=== PATIENT | female | born 1955 | race Caucasian/White ===

== ENCOUNTER 2018-02-06 11:57 | Emergency (ER) | payer OTHER ==
[~2018-02-06 11:57] MED LIST: Aspirin PO; CYCL10TA7 PO; ESTR1TAB17 PO; FIBER SUPPLEMENT PO; HYDR-2132 PO; OMEP20TA25 PO; PREG150C PO; levothyroxine PO
[2018-02-06] MEDS ORDERED: PROMETHAZINE HCL 25 MG/ML 1ML AMPULE IM ONE (12:28)
[2018-02-06] MEDS ORDERED: MORPHINE SULFATE 4 MG/1ML SYG ONE (12:28)
== END 2018-02-06 13:37 | disposition home or self-care (01) ==
LOC: EDH 11:57
DX: S40.011A Contusion of right shoulder, initial encounter (principal); M19.90 Unspecified osteoarthritis, unspecified site; E07.9 Disorder of thyroid, unspecified; K21.9 Gastro-esophageal reflux disease without esophagitis; Z87.891 Personal history of nicotine dependence; W18.39XA Other fall on same level, initial encounter; Y93.89 Activity, other specified; Y92.89 Other specified places as the place of occurrence of the external cause; Y99.8 Other external cause status
CPT/HCPCS: 73030; 73060; 96372 ×2; 99284; J2270; J2550

== ENCOUNTER → 2019-05-17 | Outpatient (CLI) | payer MEDICARE ==
[~2019-05-17] MED LIST changes: +ASPI-1012 PO; +ASPI-555 PO; +BACL20TA PO; +ESTR0.5T PO; +FISH12002 PO; +GABA-531 PO; +HYDR-4457 PO; +LEVO75 PO; +METH1ADH6 TD; +METH1ADH6 TP; +NAPR-1023 PO; +OMEP-50 PO; +TRAM50TA4 PO; +VITAMIN B12 SL; +[UNRECOGNIZED DRUG - OTHER] PO; +calcium PO; +vitamin b12
== END | disposition home or self-care (01) ==
LOC: OIH 13:29
PROVIDERS: ATTEND Internal Medicine
DX: R05 Cough (principal); M47.815 Spondylosis without myelopathy or radiculopathy, thoracolumbar region
CPT/HCPCS: 71046

== ENCOUNTER 2019-05-19 06:55 | Inpatient (IN) | payer MEDICARE | END 2019-05-21 20:00 | disposition home or self-care, planned readmission (81) | LOC: DAHIP 06:55 → 4AH 10:48 | PROC: 0SRC0J9 Replacement of Right Knee Joint with Synthetic Substitute, Cemented, Open Approach (ICD-10-PCS; principal; 2019-05-19 08:23) | DX: M17.11 Unilateral primary osteoarthritis, right knee (principal); I10 Essential (primary) hypertension; E03.9 Hypothyroidism, unspecified ==